=== PATIENT | female | born 1955 | race Hispanic/Latino ===

== ENCOUNTER 2020-09-02 16:39 | Emergency (ER) | payer MEDICARE ==
[2020-09-02 17:17] LABS: #Eosinphils 0.2 10x3/uL (0.0-0.5); #Monocytes 0.5 10x3/uL (0.0-1.1); #Neutrophils 3.5 10x3/uL (1.5-8.4); %Basophils 0.4 % (0.0-2.0); %Eosinophils 3.6 % (0.0-6.0); %Lymphocytes 20.5 % (18.0-47.0); %Monocytes 8.8 % (0.0-10.0); %Neutrophils 66.5 % (40.0-75.0); Hemoglobin 9.2 g/dL (12.0-15.5); Mean Corpuscular HGB CONC 31.8 g/dL (32.0-36.0); Mean Corpuscular Hemoglobin 31.5 pg (27.0-33.0); Mean Platelet Volume 9.8 fl (7.4-10.4); Platelet Count 192 10x3/uL (150-450); RBC Distribution Width 15.6 % (11.5-14.5); Red Blood Cell (RBC) Count 2.92 10x6/uL (3.90-5.03); White Blood Cell (WBC) Count 5.3 10x3/uL (3.5-10.5)
[2020-09-02 17:29] LABS: ALT (SGPT) 9 U/L (8-55); AST (SGOT) 17 U/L (5-34); Albumin 3.7 g/dL (3.4-4.8); Alkaline Phosphatase 111 U/L (40-110); Anion Gap 16 mmol/L (10-20); BUN (Urea Nitrogen) 9 mg/dL (9.8-20.1); Bilirubin, Total 0.5 mg/dL (0.2-1.2); Calc. Creatinine Clearance 0 mL/min (70-130); Calcium 8.4 mg/dL (7.8-10.44); Carbon Dioxide 32 mmol/L (23-31); Chloride 95 mmol/L (98-107); Globulin 3.4 g/dL (2.4-3.5); Glucose 210 mg/dL (80-115); Potassium 3.7 mmol/L (3.5-5.1); Protein, Total 7.1 g/dL (5.8-8.1); Sodium 139 mmol/L (136-145)
[2020-09-02] MEDS ORDERED: Mag-Al Plus 1200 MG/1200 MG/120 MG/30 ML UDCUP ONE (17:44)
[2020-09-02] MEDS ORDERED: Lidocaine Viscous Sol 2% 15 ml UD Cup ONE (17:44)
[2020-09-02] MEDS ORDERED: Ondansetron ODT 4 MG TAB ONE (17:45)
[2020-09-02] MEDS ORDERED: Acetaminophen 500 MG TAB ONE (17:45)
[2020-09-02 17:52] LABS: CKMB 1.4 ng/mL (0-6.6)
[2020-09-02] MEDS ORDERED: traMADol HCl 50 MG TAB ONE (18:06)
[2020-09-02] MEDS ORDERED: hydrOXYzine 25 MG TAB ONE (19:35)
[2020-09-02] MEDS ORDERED: Dicyclomine 20 MG TAB ONE (19:36)
== END 2020-09-02 21:10 | disposition home or self-care (01) ==
LOC: CSHERS 16:39
DX: R07.89 Other chest pain (principal); K21.9 Gastro-esophageal reflux disease without esophagitis; T82.838A Hemorrhage due to vascular prosthetic devices, implants and grafts, initial encounter; S90.931D Unspecified superficial injury of right great toe, subsequent encounter; E03.9 Hypothyroidism, unspecified; E11.22 Type 2 diabetes mellitus with diabetic chronic kidney disease; I12.0 Hypertensive chronic kidney disease with stage 5 chronic kidney disease or end stage renal disease; N18.6 End stage renal disease
CPT/HCPCS: 12001; 71045; 80053; 82553; 84484; 85025; 93005; Q0162

== ENCOUNTER 2021-02-07 16:15 | Inpatient (IN) | payer MEDICARE ==
[2021-02-07] MEDS ORDERED: Piperacillin/Tazobactam 2.25 GM in Sodium Chloride 0.9% 100 ML IVPB SCH (19:45)
[2021-02-07 20:49] VITALS: BMI 39.9
[2021-02-07 21:41] LABS: ALT (SGPT) 10 U/L (8-55); AST (SGOT) 20 U/L (5-34); Albumin 2.3 g/dL (3.4-4.8); Alkaline Phosphatase 143 U/L (40-110); Anion Gap 17 mmol/L (10-20); BUN (Urea Nitrogen) 30 mg/dL (9.8-20.1); Bilirubin, Total 0.4 mg/dL (0.2-1.2); Calc. Creatinine Clearance 25 mL/min (70-130); Calcium 8.6 mg/dL (7.8-10.44); Carbon Dioxide 29 mmol/L (23-31); Chloride 95 mmol/L (98-107); Globulin 4.2 g/dL (2.4-3.5); Glucose 99 mg/dL (80-115); Potassium 4.1 mmol/L (3.5-5.1); Protein, Total 6.5 g/dL (5.8-8.1); Sodium 137 mmol/L (136-145)
[2021-02-07] MEDS ORDERED: Vancomycin HCl 750 MG in Sodium Chloride 0.9% 250 ML 250 ML IVPB SCH (22:30)
[2021-02-07] MEDS ORDERED: HOLD VANCOMYCIN FOR LEVEL >20 FS SCH (22:30)
[2021-02-07] MEDS ORDERED: Vancomycin 1 GM in Premix Bag 1 BAG IVPB SCH (22:30)
[2021-02-07] MEDS ORDERED: Vancomycin HCl 1.25 GM in Sodium Chloride 0.9% 250 ML 250 ML IVPB SCH (22:30)
[2021-02-07] MEDS ORDERED: Vancomycin HCl 1.5 GM in Sodium Chloride 0.9% 250 ML 300 ML IVPB SCH (22:30)
[2021-02-07] MEDS ORDERED: Vancomycin Sliding Scale 1 EACH FS ONE (22:30)
[2021-02-07] MEDS: Heparin 5,000 UNITS/ML VIAL SC SCH (22:54)
[2021-02-07] MEDS: Amiodarone 200 MG TAB PO SCH (22:54)
[2021-02-07] MEDS: Gabapentin 300 MG CAP PO SCH (22:54)
[2021-02-07] MEDS ORDERED: Piperacillin/Tazobactam 3.375 GM in Sodium Chloride 0.9% 100 ML IVPB SCH (23:30)
[2021-02-08] MEDS: Piperacillin/Tazobactam 3.375 GM in Sodium Chloride 0.9% 100 ML IVPB SCH ×2 (04:01→17:12)
[2021-02-08 05:36] LABS: Vancomycin, Random 1.5 ug/mL (See Comment)
[2021-02-08 07:51] LABS: Anisocytosis SLIGHT = 6-15 cells (100X) (0-5/hpf); Eosinophils 4 % (0-10); Hemoglobin 7.2 g/dL (12.0-15.5); Hypochromia SLIGHT = 6-15 cells (100X) (0-5/hpf); Lymphocytes 21 % (21-51); MDiff Complete? YES; Mean Corpuscular HGB CONC 29.4 g/dL (32.0-36.0); Mean Corpuscular Hemoglobin 27.2 pg (27.0-33.0); Mean Corpuscular Volume 92.5 fl (81.6-98.3); Monocytes 9 % (0-10); Neutrophil 64 % (42-75); Platelet Count 324 10x3/uL (150-450); Platelet Morphology Comment Appears Adequate; RBC Distribution Width 17.6 % (11.5-14.5); Reactive Lymphocytes 2 % (0-10); Red Blood Cell (RBC) Count 2.65 10x6/uL (3.90-5.03); White Blood Cell (WBC) Count 7.6 10x3/uL (3.5-10.5)
[2021-02-08] MEDS ORDERED: VANCOMYCIN 2 GRAM/400 ML BAG 2 GM in Premix Bag 1 BAG IVPB SCH (08:00)
[2021-02-08] MEDS: HumuLIN 70/30 (300 UNITS/3 ML VIAL) SC SCH ×2 (08:49→17:13)
[2021-02-08] MEDS: Ferrous Sulfate 325 MG TAB PO SCH (09:14)
[2021-02-08] MEDS: Atorvastatin Calcium 40 MG TAB PO SCH (09:15)
[2021-02-08] MEDS: Gabapentin 300 MG CAP PO SCH ×2 (09:15→21:56)
[2021-02-08] MEDS: Heparin 5,000 UNITS/ML VIAL SC SCH ×3 (09:16→21:58)
[2021-02-08] MEDS: Amiodarone 200 MG TAB PO SCH ×2 (09:16→21:58)
[2021-02-08] MEDS ORDERED: Dextrose 50% Abboject 50 ML SYRINGE SLOW IVP PRN (10:28)
[2021-02-08] MEDS ORDERED: Dextrose 5% in Water 1,000 ML IV PRN (10:28)
[2021-02-08] MEDS ORDERED: HumaLOG 300 UNITS/3 ML VIAL SC PRN ×2 (10:28)
[2021-02-08] MEDS ORDERED: Morphine 2 MG/ML VIAL SLOW IVP SCH (16:45)
[2021-02-09 03:59] LABS: Anion Gap 21 mmol/L (10-20); BUN (Urea Nitrogen) 43 mg/dL (9.8-20.1); Calc. Creatinine Clearance 19 mL/min (70-130); Calcium 8.3 mg/dL (7.8-10.44); Carbon Dioxide 25 mmol/L (23-31); Chloride 96 mmol/L (98-107); Glucose 167 mg/dL (80-115); Potassium 4.5 mmol/L (3.5-5.1); Sodium 137 mmol/L (136-145)
[2021-02-09 04:32] LABS: #Basophils 0.1 10x3/uL (0.0-0.2); #Eosinphils 0.4 10x3/uL (0.0-0.5); #Monocytes 0.6 10x3/uL (0.0-1.1); #Neutrophils 4.9 10x3/uL (1.5-8.4); %Basophils 0.6 % (0.0-2.0); %Eosinophils 5.1 % (0.0-6.0); %Lymphocytes 22.3 % (18.0-47.0); %Monocytes 8.3 % (0.0-10.0); %Neutrophils 63.2 % (40.0-75.0); Hemoglobin 6.9 g/dL (12.0-15.5); Mean Corpuscular HGB CONC 29.4 g/dL (32.0-36.0); Mean Corpuscular Hemoglobin 26.2 pg (27.0-33.0); Mean Corpuscular Volume 89.4 fl (81.6-98.3); Mean Platelet Volume 10.2 fl (7.4-10.4); Platelet Count 354 10x3/uL (150-450); RBC Distribution Width 17.6 % (11.5-14.5); Red Blood Cell (RBC) Count 2.63 10x6/uL (3.90-5.03); White Blood Cell (WBC) Count 7.7 10x3/uL (3.5-10.5)
[2021-02-09] MEDS: Piperacillin/Tazobactam 3.375 GM in Sodium Chloride 0.9% 100 ML IVPB SCH ×2 (05:35→17:18)
[2021-02-09 06:24] LABS: Hypochromia SLIGHT = 6-15 cells (100X) (0-5/hpf); Microcytosis SLIGHT = 6-15 cells (100X) (0-5/hpf); Platelet Morphology Comment Appears Adequate
[2021-02-09] MEDS ORDERED: Heparin 10,000 UNITS/ 10 ML VIAL SLOW IVP PRN (07:16)
[2021-02-09] MEDS: Amiodarone 200 MG TAB PO SCH ×2 (08:23→21:32)
[2021-02-09] MEDS: Atorvastatin Calcium 40 MG TAB PO SCH (08:24)
[2021-02-09] MEDS: HumuLIN 70/30 (300 UNITS/3 ML VIAL) SC SCH ×2 (08:24→17:37)
[2021-02-09] MEDS: Ferrous Sulfate 325 MG TAB PO SCH (08:25)
[2021-02-09] MEDS: Gabapentin 300 MG CAP PO SCH ×3 (08:26→22:40)
[2021-02-09] MEDS: Heparin 5,000 UNITS/ML VIAL SC SCH ×3 (08:30→21:31)
[2021-02-09 09:04] LABS: Iron 33 ug/dL (50-170); Iron Binding Capacity, Total 91 mcg/dL (265-497)
[2021-02-09] MEDS: Acetaminophen 325 MG TAB PO PRN (10:15)
[2021-02-09] MEDS ORDERED: HYDROcodone/Acetaminophen 5/325 mg Tablet PO PRN (11:13)
[2021-02-09] MEDS ORDERED: Morphine 4 MG/ML VIAL SLOW IVP PRN (11:29)
[2021-02-09] MEDS ORDERED: Lidocaine 2% Jelly 5 ML TUBE TOP PRN ×2 (11:30→12:43)
[2021-02-09] MEDS: EPOETIN ALFA-EPBX (ESRD) 3,000 UNIT/ML VIAL SC SCH (14:51)
[2021-02-09] MEDS: EPOETIN ALFA-EPBX (ESRD) 2,000 UNIT/ML VIAL SC SCH (14:51)
[2021-02-09] MEDS ORDERED: Morphine 2 MG/ML VIAL SLOW IVP PRN (20:26)
[2021-02-09] MEDS ORDERED: hydrALAZINE 20 MG/ML VIAL SLOW IVP PRN (21:34)
[2021-02-09] MEDS: HYDROcodone/Acetaminophen 7.5/325 mg Tablet PO PRN (22:37)
[2021-02-09 23:15] LABS: Hemoglobin 8.8 g/dL (12.0-15.5); Mean Corpuscular HGB CONC 30.3 g/dL (32.0-36.0); Mean Corpuscular Hemoglobin 27.3 pg (27.0-33.0); Mean Corpuscular Volume 90.1 fl (81.6-98.3); Mean Platelet Volume 9.9 fl (7.4-10.4); Platelet Count 367 10x3/uL (150-450); RBC Distribution Width 17.1 % (11.5-14.5); Red Blood Cell (RBC) Count 3.22 10x6/uL (3.90-5.03); White Blood Cell (WBC) Count 7.7 10x3/uL (3.5-10.5)
[2021-02-09 23:30] LABS: Magnesium 2.1 mg/dL (1.6-2.6)
[2021-02-10] MEDS: Piperacillin/Tazobactam 3.375 GM in Sodium Chloride 0.9% 100 ML IVPB SCH ×2 (05:09→17:03)
[2021-02-10] MEDS: HYDROcodone/Acetaminophen 7.5/325 mg Tablet PO PRN (05:12)
[2021-02-10 08:41] LABS: #Eosinphils 0.3 10x3/uL (0.0-0.5); #Monocytes 0.7 10x3/uL (0.0-1.1); #Neutrophils 4.3 10x3/uL (1.5-8.4); %Basophils 0.6 % (0.0-2.0); %Eosinophils 4.6 % (0.0-6.0); %Monocytes 10.3 % (0.0-10.0); %Neutrophils 62.9 % (40.0-75.0); Hemoglobin 7.6 g/dL (12.0-15.5); Mean Corpuscular HGB CONC 29.5 g/dL (32.0-36.0); Mean Corpuscular Hemoglobin 26.4 pg (27.0-33.0); Mean Corpuscular Volume 89.6 fl (81.6-98.3); Platelet Count 363 10x3/uL (150-450); RBC Distribution Width 17.2 % (11.5-14.5); Red Blood Cell (RBC) Count 2.88 10x6/uL (3.90-5.03); White Blood Cell (WBC) Count 6.8 10x3/uL (3.5-10.5)
[2021-02-10 08:47] LABS: Vancomycin, Random 19.3 ug/mL (See Comment)
[2021-02-10 08:48] LABS: Anion Gap 15 mmol/L (10-20); BUN (Urea Nitrogen) 23 mg/dL (9.8-20.1); Calc. Creatinine Clearance 29 mL/min (70-130); Calcium 8.3 mg/dL (7.8-10.44); Carbon Dioxide 27 mmol/L (23-31); Chloride 100 mmol/L (98-107); Glucose 109 mg/dL (80-115); Sodium 138 mmol/L (136-145)
[2021-02-10] MEDS: Aspirin 81 mg Enteric Coated Tablet PO SCH (10:47)
[2021-02-10] MEDS: Atorvastatin Calcium 40 MG TAB PO SCH (10:47)
[2021-02-10] MEDS: Heparin 5,000 UNITS/ML VIAL SC SCH (10:47)
[2021-02-10] MEDS: Ferrous Sulfate 325 MG TAB PO SCH (10:47)
[2021-02-10] MEDS: Pantoprazole 40 MG GRANULES PACKET PO SCH (10:47)
[2021-02-10] MEDS: Clopidogrel Bisulfate 75 MG TAB PO SCH (10:47)
[2021-02-10] MEDS: Levothyroxine Sodium 125 MCG TAB PO SCH (10:47)
[2021-02-10] MEDS: HumuLIN 70/30 (300 UNITS/3 ML VIAL) SC SCH ×2 (10:47→16:43)
[2021-02-10] MEDS: Amiodarone 200 MG TAB PO SCH ×2 (10:47→21:02)
[2021-02-10] MEDS ORDERED: Ketorolac Tromethamine 30 MG/ML VIAL IVP SCH (12:00)
[2021-02-10 12:30] LABS: Hemoglobin 8.9 g/dL (12.0-15.5)
[2021-02-10] MEDS: Apixaban 2.5 MG TAB PO SCH (21:02)
[2021-02-10] MEDS: Gabapentin 300 MG CAP PO SCH (21:03)
[2021-02-11] MEDS: Acetaminophen 325 MG TAB PO PRN (00:30)
[2021-02-11] MEDS: Ketorolac Tromethamine 30 MG/ML VIAL IVP PRN ×4 (02:02→20:47)
[2021-02-11] MEDS: Piperacillin/Tazobactam 3.375 GM in Sodium Chloride 0.9% 100 ML IVPB SCH ×2 (04:22→15:02)
[2021-02-11 05:20] LABS: Anion Gap 20 mmol/L (10-20); BUN (Urea Nitrogen) 30 mg/dL (9.8-20.1); Calc. Creatinine Clearance 24 mL/min (70-130); Calcium 8.4 mg/dL (7.8-10.44); Carbon Dioxide 24 mmol/L (23-31); Chloride 99 mmol/L (98-107); Glucose 129 mg/dL (80-115); Potassium 4.2 mmol/L (3.5-5.1); Sodium 139 mmol/L (136-145)
[2021-02-11 05:21] LABS: #Basophils 0.1 10x3/uL (0.0-0.2); #Eosinphils 0.4 10x3/uL (0.0-0.5); #Monocytes 0.5 10x3/uL (0.0-1.1); #Neutrophils 3.4 10x3/uL (1.5-8.4); %Basophils 1.2 % (0.0-2.0); %Eosinophils 7.2 % (0.0-6.0); %Lymphocytes 24.3 % (18.0-47.0); %Monocytes 8.8 % (0.0-10.0); %Neutrophils 57.8 % (40.0-75.0); Hemoglobin 7.7 g/dL (12.0-15.5); Mean Corpuscular HGB CONC 29.7 g/dL (32.0-36.0); Mean Corpuscular Hemoglobin 27.1 pg (27.0-33.0); Mean Corpuscular Volume 91.2 fl (81.6-98.3); Mean Platelet Volume 10.1 fl (7.4-10.4); Platelet Count 375 10x3/uL (150-450); RBC Distribution Width 17.2 % (11.5-14.5); Red Blood Cell (RBC) Count 2.84 10x6/uL (3.90-5.03); White Blood Cell (WBC) Count 5.8 10x3/uL (3.5-10.5)
[2021-02-11] MEDS: Levothyroxine Sodium 125 MCG TAB PO SCH (05:27)
[2021-02-11] MEDS: Pantoprazole 40 MG GRANULES PACKET PO SCH (05:28)
[2021-02-11 06:30] LABS: Platelet Morphology Comment Appears Adequate
[2021-02-11 06:31] LABS: Hypochromia SLIGHT = 6-15 cells (100X) (0-5/hpf)
[2021-02-11] MEDS ORDERED: Vancomycin HCl 750 MG in Sodium Chloride 0.9% 250 ML 250 ML IVPB SCH (08:00)
[2021-02-11] MEDS: Atorvastatin Calcium 40 MG TAB PO SCH (14:40)
[2021-02-11] MEDS: HYDROcodone/Acetaminophen 7.5/325 mg Tablet PO PRN ×2 (14:40→20:46)
[2021-02-11] MEDS: Clopidogrel Bisulfate 75 MG TAB PO SCH (14:40)
[2021-02-11] MEDS: Apixaban 2.5 MG TAB PO SCH ×2 (14:42→20:45)
[2021-02-11] MEDS: Amiodarone 200 MG TAB PO SCH ×2 (14:42→20:46)
[2021-02-11] MEDS: HumuLIN 70/30 (300 UNITS/3 ML VIAL) SC SCH ×2 (14:42→17:25)
[2021-02-11] MEDS: Aspirin 81 mg Enteric Coated Tablet PO SCH (14:42)
[2021-02-11] MEDS: Ferrous Sulfate 325 MG TAB PO SCH (14:42)
[2021-02-11] MEDS: Gabapentin 300 MG CAP PO SCH ×2 (14:43→20:45)
[2021-02-11] MEDS: EPOETIN ALFA-EPBX (ESRD) 3,000 UNIT/ML VIAL SC SCH (14:44)
[2021-02-11] MEDS: EPOETIN ALFA-EPBX (ESRD) 2,000 UNIT/ML VIAL SC SCH (14:44)
[2021-02-11] MEDS ORDERED: Morphine 4 MG/ML VIAL SLOW IVP SCH (17:30)
[2021-02-11] MEDS: Morphine 2 MG/ML VIAL SLOW IVP PRN (23:23)
[2021-02-12] MEDS: HYDROcodone/Acetaminophen 7.5/325 mg Tablet PO PRN ×4 (01:09→19:44)
[2021-02-12] MEDS: Ketorolac Tromethamine 30 MG/ML VIAL IVP PRN ×4 (01:10→19:44)
[2021-02-12] MEDS: Piperacillin/Tazobactam 3.375 GM in Sodium Chloride 0.9% 100 ML IVPB SCH (04:21)
[2021-02-12] MEDS: Pantoprazole 40 MG GRANULES PACKET PO SCH (05:23)
[2021-02-12] MEDS: Levothyroxine Sodium 125 MCG TAB PO SCH (05:23)
[2021-02-12] MEDS: Morphine 2 MG/ML VIAL SLOW IVP PRN ×3 (06:34→13:31)
[2021-02-12 07:01] LABS: Anion Gap 19 mmol/L (10-20); BUN (Urea Nitrogen) 18 mg/dL (9.8-20.1); Calc. Creatinine Clearance 33 mL/min (70-130); Carbon Dioxide 27 mmol/L (23-31); Chloride 95 mmol/L (98-107); Glucose 103 mg/dL (80-115); Magnesium 1.9 mg/dL (1.6-2.6); Potassium 4.2 mmol/L (3.5-5.1); Sodium 137 mmol/L (136-145)
[2021-02-12 07:12] LABS: #Basophils 0.1 10x3/uL (0.0-0.2); #Eosinphils 0.5 10x3/uL (0.0-0.5); #Monocytes 0.6 10x3/uL (0.0-1.1); #Neutrophils 3.9 10x3/uL (1.5-8.4); %Basophils 0.8 % (0.0-2.0); %Eosinophils 7.4 % (0.0-6.0); %Lymphocytes 23.1 % (18.0-47.0); %Neutrophils 59.1 % (40.0-75.0); Hemoglobin 8.3 g/dL (12.0-15.5); Mean Corpuscular HGB CONC 29.3 g/dL (32.0-36.0); Mean Corpuscular Hemoglobin 26.6 pg (27.0-33.0); Mean Corpuscular Volume 90.7 fl (81.6-98.3); Mean Platelet Volume 9.9 fl (7.4-10.4); Platelet Count 404 10x3/uL (150-450); RBC Distribution Width 17.5 % (11.5-14.5); Red Blood Cell (RBC) Count 3.12 10x6/uL (3.90-5.03); White Blood Cell (WBC) Count 6.6 10x3/uL (3.5-10.5)
[2021-02-12] MEDS: Aspirin 81 mg Enteric Coated Tablet PO SCH (08:22)
[2021-02-12] MEDS: Clopidogrel Bisulfate 75 MG TAB PO SCH (08:22)
[2021-02-12] MEDS: Atorvastatin Calcium 40 MG TAB PO SCH (08:22)
[2021-02-12] MEDS: Apixaban 2.5 MG TAB PO SCH ×2 (08:22→21:05)
[2021-02-12] MEDS: Amiodarone 200 MG TAB PO SCH ×2 (08:23→21:05)
[2021-02-12] MEDS: Gabapentin 300 MG CAP PO SCH ×2 (08:23→21:04)
[2021-02-12] MEDS: Ferrous Sulfate 325 MG TAB PO SCH (08:23)
[2021-02-12] MEDS: HumuLIN 70/30 (300 UNITS/3 ML VIAL) SC SCH ×2 (08:24→18:47)
[2021-02-12] MEDS ORDERED: MEROPENEM 1 GM/50 ML 1 GM in Premix Bag 1 BAG IVPB SCH (10:00)
[2021-02-12] MEDS ORDERED: Meropenem 1 GM in Sodium Chloride 0.9% 100 ML IVPB SCH (14:00)
[2021-02-12] MEDS ORDERED: Morphine ER 15 MG TAB PO SCH (16:00)
[2021-02-12] MEDS: Meropenem 500 MG in Sodium Chloride 0.9% 100 ML IVPB SCH (18:55)
[2021-02-13] MEDS: Morphine 2 MG/ML VIAL SLOW IVP PRN ×3 (00:18→23:37)
[2021-02-13] MEDS: HYDROcodone/Acetaminophen 7.5/325 mg Tablet PO PRN ×2 (00:54→10:03)
[2021-02-13] MEDS: Ketorolac Tromethamine 30 MG/ML VIAL IVP PRN ×2 (00:55→10:01)
[2021-02-13] MEDS: Morphine ER 15 MG TAB PO SCH ×2 (04:36→23:35)
[2021-02-13] MEDS ORDERED: Sodium Chloride 0.9% 100 ML ONE (05:05)
[2021-02-13] MEDS: Meropenem 500 MG in Sodium Chloride 0.9% 100 ML IVPB SCH (05:13)
[2021-02-13] MEDS: Pantoprazole 40 MG GRANULES PACKET PO SCH (05:14)
[2021-02-13] MEDS: Levothyroxine Sodium 125 MCG TAB PO SCH (05:14)
[2021-02-13 07:57] LABS: #Eosinphils 0.4 10x3/uL (0.0-0.5); #Monocytes 0.6 10x3/uL (0.0-1.1); #Neutrophils 8.6 10x3/uL (1.5-8.4); %Basophils 0.3 % (0.0-2.0); %Eosinophils 3.8 % (0.0-6.0); %Lymphocytes 12.4 % (18.0-47.0); %Monocytes 5.2 % (0.0-10.0); %Neutrophils 77.7 % (40.0-75.0); Hemoglobin 9.1 g/dL (12.0-15.5); Mean Corpuscular HGB CONC 29.9 g/dL (32.0-36.0); Mean Corpuscular Hemoglobin 27.2 pg (27.0-33.0); Mean Corpuscular Volume 90.7 fl (81.6-98.3); Mean Platelet Volume 9.9 fl (7.4-10.4); Platelet Count 366 10x3/uL (150-450); RBC Distribution Width 17.7 % (11.5-14.5); Red Blood Cell (RBC) Count 3.35 10x6/uL (3.90-5.03); White Blood Cell (WBC) Count 11.1 10x3/uL (3.5-10.5)
[2021-02-13 08:00] LABS: Vancomycin, Random 15.6 ug/mL (See Comment)
[2021-02-13 08:01] LABS: Anion Gap 17 mmol/L (10-20); BUN (Urea Nitrogen) 31 mg/dL (9.8-20.1); Calc. Creatinine Clearance 26 mL/min (70-130); Calcium 7.9 mg/dL (7.8-10.44); Carbon Dioxide 25 mmol/L (23-31); Chloride 96 mmol/L (98-107); Glucose 78 mg/dL (80-115); Potassium 3.9 mmol/L (3.5-5.1); Sodium 134 mmol/L (136-145)
[2021-02-13] MEDS: HumuLIN 70/30 (300 UNITS/3 ML VIAL) SC SCH ×2 (10:00→18:50)
[2021-02-13] MEDS: Gabapentin 300 MG CAP PO SCH ×2 (10:02→23:36)
[2021-02-13] MEDS: Clopidogrel Bisulfate 75 MG TAB PO SCH (10:03)
[2021-02-13] MEDS: Aspirin 81 mg Enteric Coated Tablet PO SCH (10:03)
[2021-02-13] MEDS: Atorvastatin Calcium 40 MG TAB PO SCH (10:04)
[2021-02-13] MEDS: Apixaban 2.5 MG TAB PO SCH ×2 (10:04→23:36)
[2021-02-13] MEDS: Ferrous Sulfate 325 MG TAB PO SCH (10:05)
[2021-02-13] MEDS: Amiodarone 200 MG TAB PO SCH ×2 (10:05→23:36)
[2021-02-13] MEDS ORDERED: Vancomycin HCl 750 MG in Sodium Chloride 0.9% 250 ML 250 ML IVPB SCH ×2 (12:00→20:15)
[2021-02-14] MEDS: Meropenem 500 MG in Sodium Chloride 0.9% 100 ML IVPB SCH ×3 (00:27→12:34)
[2021-02-14] MEDS ORDERED: Vancomycin HCl 750 MG in Sodium Chloride 0.9% 250 ML 250 ML IVPB SCH (01:00)
[2021-02-14] MEDS: HYDROcodone/Acetaminophen 7.5/325 mg Tablet PO PRN ×3 (02:15→19:24)
[2021-02-14] MEDS: Ketorolac Tromethamine 30 MG/ML VIAL IVP PRN (02:17)
[2021-02-14] MEDS: Morphine ER 15 MG TAB PO SCH ×2 (04:46→16:33)
[2021-02-14] MEDS: Levothyroxine Sodium 125 MCG TAB PO SCH (05:45)
[2021-02-14] MEDS: Pantoprazole 40 MG GRANULES PACKET PO SCH (05:45)
[2021-02-14] MEDS: Gabapentin 300 MG CAP PO SCH ×2 (08:15→21:06)
[2021-02-14] MEDS: Atorvastatin Calcium 40 MG TAB PO SCH ×2 (08:15→08:24)
[2021-02-14] MEDS: Apixaban 2.5 MG TAB PO SCH ×2 (08:16→21:06)
[2021-02-14] MEDS: Aspirin 81 mg Enteric Coated Tablet PO SCH (08:16)
[2021-02-14] MEDS: Clopidogrel Bisulfate 75 MG TAB PO SCH (08:16)
[2021-02-14] MEDS: Amiodarone 200 MG TAB PO SCH ×2 (08:16→21:06)
[2021-02-14] MEDS: HumuLIN 70/30 (300 UNITS/3 ML VIAL) SC SCH ×2 (08:17→16:34)
[2021-02-14] MEDS: Ferrous Sulfate 325 MG TAB PO SCH (08:17)
[2021-02-14] MEDS: EPOETIN ALFA-EPBX (ESRD) 3,000 UNIT/ML VIAL SC SCH (12:35)
[2021-02-14] MEDS: EPOETIN ALFA-EPBX (ESRD) 2,000 UNIT/ML VIAL SC SCH (12:35)
[2021-02-14 20:45] LABS: #Eosinphils 0.4 10x3/uL (0.0-0.5); #Monocytes 0.6 10x3/uL (0.0-1.1); #Neutrophils 7.4 10x3/uL (1.5-8.4); %Basophils 0.4 % (0.0-2.0); %Eosinophils 3.8 % (0.0-6.0); %Lymphocytes 15.9 % (18.0-47.0); %Monocytes 5.5 % (0.0-10.0); %Neutrophils 73.9 % (40.0-75.0); Hemoglobin 7.8 g/dL (12.0-15.5); Mean Corpuscular HGB CONC 28.9 g/dL (32.0-36.0); Mean Corpuscular Hemoglobin 27.1 pg (27.0-33.0); Mean Corpuscular Volume 93.8 fl (81.6-98.3); Mean Platelet Volume 9.7 fl (7.4-10.4); Platelet Count 370 10x3/uL (150-450); Red Blood Cell (RBC) Count 2.88 10x6/uL (3.90-5.03)
[2021-02-14 20:56] LABS: Anion Gap 16 mmol/L (10-20); BUN (Urea Nitrogen) 20 mg/dL (9.8-20.1); Calc. Creatinine Clearance 31 mL/min (70-130); Calcium 8.2 mg/dL (7.8-10.44); Carbon Dioxide 25 mmol/L (23-31); Chloride 100 mmol/L (98-107); Glucose 120 mg/dL (80-115); Potassium 3.9 mmol/L (3.5-5.1); Sodium 137 mmol/L (136-145)
[2021-02-14 21:15] LABS: Hypochromia SLIGHT = 6-15 cells (100X) (0-5/hpf)
[2021-02-14 21:16] LABS: Basophilic Stippling SLIGHT = 1-2 cells (100X) (None Seen); Large Platelets SLIGHT
[2021-02-15] MEDS: Meropenem 500 MG in Sodium Chloride 0.9% 100 ML IVPB SCH ×3 (00:35→23:52)
[2021-02-15] MEDS: Morphine ER 15 MG TAB PO SCH ×2 (04:37→16:20)
[2021-02-15 05:15] LABS: Vancomycin, Trough 14.1 ug/mL
[2021-02-15] MEDS: Levothyroxine Sodium 125 MCG TAB PO SCH (06:21)
[2021-02-15] MEDS: Pantoprazole 40 MG GRANULES PACKET PO SCH (06:21)
[2021-02-15] MEDS: Ferrous Sulfate 325 MG TAB PO SCH (08:01)
[2021-02-15] MEDS: Amiodarone 200 MG TAB PO SCH ×2 (08:01→21:42)
[2021-02-15] MEDS: Aspirin 81 mg Enteric Coated Tablet PO SCH (08:01)
[2021-02-15] MEDS: Gabapentin 300 MG CAP PO SCH ×2 (08:01→21:41)
[2021-02-15] MEDS: Clopidogrel Bisulfate 75 MG TAB PO SCH (08:01)
[2021-02-15] MEDS: Apixaban 2.5 MG TAB PO SCH ×2 (08:02→21:42)
[2021-02-15] MEDS: Atorvastatin Calcium 40 MG TAB PO SCH (08:02)
[2021-02-15] MEDS: HYDROcodone/Acetaminophen 7.5/325 mg Tablet PO PRN ×2 (08:02→23:51)
[2021-02-15] MEDS: HumuLIN 70/30 (300 UNITS/3 ML VIAL) SC SCH ×2 (09:57→19:59)
[2021-02-15] MEDS ORDERED: Vancomycin HCl 1 GM in Sodium Chloride 0.9% 250 ML 250 ML IVPB SCH (11:00)
[2021-02-15 12:16] LABS: Anion Gap 11 mmol/L (10-20); BUN (Urea Nitrogen) 7 mg/dL (9.8-20.1); Calc. Creatinine Clearance 76 mL/min (70-130); Calcium 8.1 mg/dL (7.8-10.44); Carbon Dioxide 29 mmol/L (23-31); Chloride 100 mmol/L (98-107); Glucose 106 mg/dL (80-115); Potassium 3.6 mmol/L (3.5-5.1); Sodium 136 mmol/L (136-145)
[2021-02-15 12:23] LABS: Band 2 % (5-11); Basophilic Stippling SLIGHT = 1-2 cells (100X) (None Seen); Eosinophils 2 % (0-10); Hemoglobin 7.7 g/dL (12.0-15.5); Hypochromia SLIGHT = 6-15 cells (100X) (0-5/hpf); Lymphocytes 14 % (21-51); MDiff Complete? YES; Macrocytosis SLIGHT = 6-15 cells (100X) (0-5/hpf); Mean Corpuscular HGB CONC 29.4 g/dL (32.0-36.0); Mean Corpuscular Hemoglobin 27.5 pg (27.0-33.0); Mean Corpuscular Volume 93.6 fl (81.6-98.3); Mean Platelet Volume 9.2 fl (7.4-10.4); Microcytosis SLIGHT = 6-15 cells (100X) (0-5/hpf); Monocytes 5 % (0-10); Neutrophil 73 % (42-75); Platelet Count 387 10x3/uL (150-450); Platelet Morphology Comment Appears Adequate; Polychromasia SLIGHT = 2-3 cells (100X) (0-2/hpf); Reactive Lymphocytes 3 % (0-10); Schistocytes SLIGHT = 2-5 cells (100X) (0-1/hpf); Target Cells SLIGHT = 2-5 cells (100X) (0-1/hpf); White Blood Cell (WBC) Count 8.7 10x3/uL (3.5-10.5)
[2021-02-15] MEDS: Morphine 4 MG/ML VIAL SLOW IVP PRN (14:27)
[2021-02-16] MEDS: Pantoprazole 40 MG GRANULES PACKET PO SCH (05:07)
[2021-02-16] MEDS: Morphine ER 15 MG TAB PO SCH ×2 (05:08→17:32)
[2021-02-16] MEDS: Levothyroxine Sodium 125 MCG TAB PO SCH (05:08)
[2021-02-16] MEDS: Gabapentin 300 MG CAP PO SCH ×2 (08:56→21:05)
[2021-02-16] MEDS: Atorvastatin Calcium 40 MG TAB PO SCH (08:57)
[2021-02-16] MEDS: Clopidogrel Bisulfate 75 MG TAB PO SCH (08:57)
[2021-02-16] MEDS: Amiodarone 200 MG TAB PO SCH ×2 (08:57→21:05)
[2021-02-16] MEDS: Ferrous Sulfate 325 MG TAB PO SCH (08:57)
[2021-02-16] MEDS: Aspirin 81 mg Enteric Coated Tablet PO SCH (08:57)
[2021-02-16] MEDS: HumuLIN 70/30 (300 UNITS/3 ML VIAL) SC SCH ×2 (08:58→17:33)
[2021-02-16 09:39] LABS: Albumin 2.2 g/dL (3.4-4.8); Anion Gap 12 mmol/L (10-20); BUN (Urea Nitrogen) 16 mg/dL (9.8-20.1); BUN/Creatinine Ratio 6.43; Calc. Creatinine Clearance 37 mL/min (70-130); Calcium 8.4 mg/dL (7.8-10.44); Carbon Dioxide 26 mmol/L (23-31); Chloride 101 mmol/L (98-107); Glucose 113 mg/dL (80-115); Phosphorus 2.5 mg/dL (2.3-4.7); Potassium 4.2 mmol/L (3.5-5.1); Sodium 135 mmol/L (136-145)
[2021-02-16 13:17] LABS: #Eosinphils 0.2 10x3/uL (0.0-0.5); #Monocytes 0.6 10x3/uL (0.0-1.1); #Neutrophils 5.8 10x3/uL (1.5-8.4); %Basophils 0.4 % (0.0-2.0); %Eosinophils 2.7 % (0.0-6.0); %Lymphocytes 18.7 % (18.0-47.0); %Monocytes 7.2 % (0.0-10.0); %Neutrophils 70.4 % (40.0-75.0); Hemoglobin 7.6 g/dL (12.0-15.5); Mean Corpuscular HGB CONC 28.5 g/dL (32.0-36.0); Mean Corpuscular Hemoglobin 27.1 pg (27.0-33.0); Mean Corpuscular Volume 95.4 fl (81.6-98.3); Mean Platelet Volume 9.1 fl (7.4-10.4); Platelet Count 373 10x3/uL (150-450); RBC Distribution Width 18.1 % (11.5-14.5); White Blood Cell (WBC) Count 8.3 10x3/uL (3.5-10.5)
[2021-02-16] MEDS: EPOETIN ALFA-EPBX (ESRD) 2,000 UNIT/ML VIAL SC SCH (13:49)
[2021-02-16] MEDS: EPOETIN ALFA-EPBX (ESRD) 3,000 UNIT/ML VIAL SC SCH (13:49)
[2021-02-16] MEDS: Meropenem 500 MG in Sodium Chloride 0.9% 100 ML IVPB SCH (13:50)
[2021-02-16] MEDS: Apixaban 2.5 MG TAB PO SCH ×2 (14:09→21:05)
[2021-02-16] MEDS: Morphine 4 MG/ML VIAL SLOW IVP PRN (21:23)
[2021-02-17] MEDS: Meropenem 500 MG in Sodium Chloride 0.9% 100 ML IVPB SCH ×2 (00:38→15:52)
[2021-02-17 04:59] LABS: Vancomycin, Random 15.4 ug/mL (See Comment)
[2021-02-17] MEDS: Morphine ER 15 MG TAB PO SCH ×2 (05:17→16:06)
[2021-02-17] MEDS: Levothyroxine Sodium 125 MCG TAB PO SCH (05:20)
[2021-02-17] MEDS: Pantoprazole 40 MG GRANULES PACKET PO SCH (05:21)
[2021-02-17 09:16] LABS: #Basophils 0.1 10x3/uL (0.0-0.2); #Eosinphils 0.3 10x3/uL (0.0-0.5); #Monocytes 0.7 10x3/uL (0.0-1.1); #Neutrophils 5.8 10x3/uL (1.5-8.4); %Basophils 0.7 % (0.0-2.0); %Eosinophils 2.8 % (0.0-6.0); %Lymphocytes 23.6 % (18.0-47.0); %Monocytes 7.9 % (0.0-10.0); %Neutrophils 64.3 % (40.0-75.0); Hemoglobin 7.8 g/dL (12.0-15.5); Mean Corpuscular HGB CONC 28.9 g/dL (32.0-36.0); Mean Corpuscular Hemoglobin 27.2 pg (27.0-33.0); Mean Corpuscular Volume 94.1 fl (81.6-98.3); Mean Platelet Volume 9.5 fl (7.4-10.4); Platelet Count 385 10x3/uL (150-450); RBC Distribution Width 18.1 % (11.5-14.5); Red Blood Cell (RBC) Count 2.87 10x6/uL (3.90-5.03)
[2021-02-17 09:44] LABS: ALT (SGPT) Less than 6 U/L (8-55); AST (SGOT) 17 U/L (5-34); Albumin 2.5 g/dL (3.4-4.8); Alkaline Phosphatase 140 U/L (40-110); Anion Gap 15 mmol/L (10-20); BUN (Urea Nitrogen) 25 mg/dL (9.8-20.1); Bilirubin, Total 0.4 mg/dL (0.2-1.2); Calc. Creatinine Clearance 24 mL/min (70-130); Calcium 8.4 mg/dL (7.8-10.44); Carbon Dioxide 25 mmol/L (23-31); Chloride 98 mmol/L (98-107); Globulin 4.3 g/dL (2.4-3.5); Glucose 116 mg/dL (80-115); Potassium 4.5 mmol/L (3.5-5.1); Protein, Total 6.8 g/dL (5.8-8.1); Sodium 133 mmol/L (136-145)
[2021-02-17] MEDS: Atorvastatin Calcium 40 MG TAB PO SCH (10:04)
[2021-02-17] MEDS: Aspirin 81 mg Enteric Coated Tablet PO SCH (10:04)
[2021-02-17] MEDS: Apixaban 2.5 MG TAB PO SCH ×2 (10:04→20:48)
[2021-02-17] MEDS: Clopidogrel Bisulfate 75 MG TAB PO SCH (10:04)
[2021-02-17] MEDS: Gabapentin 300 MG CAP PO SCH ×2 (10:04→20:47)
[2021-02-17] MEDS: Ferrous Sulfate 325 MG TAB PO SCH (10:05)
[2021-02-17] MEDS: Amiodarone 200 MG TAB PO SCH ×2 (10:05→20:48)
[2021-02-17] MEDS: HumuLIN 70/30 (300 UNITS/3 ML VIAL) SC SCH ×2 (10:06→16:06)
[2021-02-17] MEDS: Morphine 4 MG/ML VIAL SLOW IVP PRN ×2 (12:45→17:47)
[2021-02-17] MEDS ORDERED: Vancomycin HCl 750 MG in Sodium Chloride 0.9% 250 ML 250 ML IVPB SCH (13:00)
[2021-02-17] MEDS: HYDROcodone/Acetaminophen 7.5/325 mg Tablet PO PRN (14:36)
[2021-02-18] MEDS: Meropenem 500 MG in Sodium Chloride 0.9% 100 ML IVPB SCH ×2 (00:16→12:59)
[2021-02-18] MEDS: Morphine ER 15 MG TAB PO SCH ×2 (04:39→17:17)
[2021-02-18] MEDS: Levothyroxine Sodium 125 MCG TAB PO SCH (06:00)
[2021-02-18] MEDS: Pantoprazole 40 MG GRANULES PACKET PO SCH (06:00)
[2021-02-18] MEDS ORDERED: EPOETIN ALFA-EPBX (ESRD) 3,000 UNIT/ML VIAL SC SCH ×2 (06:21→09:00)
[2021-02-18 06:31] LABS: #Basophils 0.1 10x3/uL (0.0-0.2); #Eosinphils 0.4 10x3/uL (0.0-0.5); #Monocytes 1.3 10x3/uL (0.0-1.1); #Neutrophils 7.5 10x3/uL (1.5-8.4); %Basophils 0.4 % (0.0-2.0); %Eosinophils 3.3 % (0.0-6.0); %Lymphocytes 21.7 % (18.0-47.0); %Monocytes 11.2 % (0.0-10.0); %Neutrophils 62.2 % (40.0-75.0); Hemoglobin 7.5 g/dL (12.0-15.5); Mean Corpuscular HGB CONC 29.4 g/dL (32.0-36.0); Mean Corpuscular Hemoglobin 27.3 pg (27.0-33.0); Mean Corpuscular Volume 92.7 fl (81.6-98.3); Mean Platelet Volume 9.6 fl (7.4-10.4); Platelet Count 362 10x3/uL (150-450); Red Blood Cell (RBC) Count 2.75 10x6/uL (3.90-5.03)
[2021-02-18 06:58] LABS: ALT (SGPT) 7 U/L (8-55); AST (SGOT) 25 U/L (5-34); Albumin 2.4 g/dL (3.4-4.8); Alkaline Phosphatase 122 U/L (40-110); Anion Gap 24 mmol/L (10-20); BUN (Urea Nitrogen) 35 mg/dL (9.8-20.1); Bilirubin, Total 0.4 mg/dL (0.2-1.2); Calc. Creatinine Clearance 18 mL/min (70-130); Calcium 9.6 mg/dL (7.8-10.44); Carbon Dioxide 16 mmol/L (23-31); Chloride 102 mmol/L (98-107); Potassium 5.5 mmol/L (3.5-5.1); Protein, Total 7.4 g/dL (5.8-8.1); Sodium 136 mmol/L (136-145)
[2021-02-18 07:03] LABS: Glucose 58 mg/dL (80-115)
[2021-02-18] MEDS: Apixaban 2.5 MG TAB PO SCH (08:26)
[2021-02-18] MEDS: Ferrous Sulfate 325 MG TAB PO SCH (08:26)
[2021-02-18] MEDS: Clopidogrel Bisulfate 75 MG TAB PO SCH (08:27)
[2021-02-18] MEDS: Amiodarone 200 MG TAB PO SCH (08:27)
[2021-02-18] MEDS: Gabapentin 300 MG CAP PO SCH (08:27)
[2021-02-18] MEDS: Atorvastatin Calcium 40 MG TAB PO SCH (08:28)
[2021-02-18] MEDS: Aspirin 81 mg Enteric Coated Tablet PO SCH (08:28)
[2021-02-18] MEDS: HumuLIN 70/30 (300 UNITS/3 ML VIAL) SC SCH ×2 (08:30→16:37)
[2021-02-18] MEDS: EPOETIN ALFA-EPBX (ESRD) 3,000 UNIT/ML VIAL SC SCH (08:47)
[2021-02-18] MEDS: EPOETIN ALFA-EPBX (ESRD) 2,000 UNIT/ML VIAL SC SCH (08:47)
[2021-02-18] MEDS ORDERED: Dextrose 50% Abboject 50 ML SYRINGE SLOW IVP SCH (09:25)
[2021-02-18] MEDS ORDERED: Insulin Regular 300 UNITS/3 ML VIAL IVP SCH (09:30)
[2021-02-18] MEDS: Lorazepam 0.5 MG TAB PO PRN (09:38)
[2021-02-19] MEDS: Amiodarone 200 MG TAB PO SCH ×3 (01:22→22:10)
[2021-02-19] MEDS: Gabapentin 300 MG CAP PO SCH ×3 (01:23→22:10)
[2021-02-19] MEDS: Apixaban 2.5 MG TAB PO SCH ×3 (01:23→22:10)
[2021-02-19] MEDS: Meropenem 500 MG in Sodium Chloride 0.9% 100 ML IVPB SCH ×2 (01:26→13:19)
[2021-02-19] MEDS: Lorazepam 0.5 MG TAB PO PRN (03:07)
[2021-02-19] MEDS: Morphine ER 15 MG TAB PO SCH ×2 (05:26→16:32)
[2021-02-19] MEDS: Pantoprazole 40 MG GRANULES PACKET PO SCH (05:56)
[2021-02-19] MEDS: Levothyroxine Sodium 125 MCG TAB PO SCH (05:56)
[2021-02-19 06:38] LABS: ALT (SGPT) 6 U/L (8-55); AST (SGOT) 18 U/L (5-34); Albumin 2.2 g/dL (3.4-4.8); Alkaline Phosphatase 105 U/L (40-110); Anion Gap 16 mmol/L (10-20); BUN (Urea Nitrogen) 16 mg/dL (9.8-20.1); Bilirubin, Total 0.4 mg/dL (0.2-1.2); Calc. Creatinine Clearance 34 mL/min (70-130); Calcium 9.2 mg/dL (7.8-10.44); Carbon Dioxide 25 mmol/L (23-31); Chloride 99 mmol/L (98-107); Globulin 4.5 g/dL (2.4-3.5); Glucose 110 mg/dL (80-115); Potassium 3.7 mmol/L (3.5-5.1); Protein, Total 6.7 g/dL (5.8-8.1); Sodium 136 mmol/L (136-145)
[2021-02-19] MEDS: HumuLIN 70/30 (300 UNITS/3 ML VIAL) SC SCH ×2 (07:08→16:34)
[2021-02-19 08:08] LABS: #Eosinphils 0.2 10x3/uL (0.0-0.5); #Neutrophils 6.9 10x3/uL (1.5-8.4); %Basophils 0.4 % (0.0-2.0); %Eosinophils 2.1 % (0.0-6.0); %Lymphocytes 13.6 % (18.0-47.0); %Monocytes 10.1 % (0.0-10.0); %Neutrophils 72.6 % (40.0-75.0); Hemoglobin 6.9 g/dL (12.0-15.5); Mean Corpuscular HGB CONC 29.1 g/dL (32.0-36.0); Mean Corpuscular Hemoglobin 26.8 pg (27.0-33.0); Mean Corpuscular Volume 92.2 fl (81.6-98.3); Mean Platelet Volume 9.4 fl (7.4-10.4); Platelet Count 336 10x3/uL (150-450); RBC Distribution Width 17.8 % (11.5-14.5); Red Blood Cell (RBC) Count 2.57 10x6/uL (3.90-5.03); White Blood Cell (WBC) Count 9.5 10x3/uL (3.5-10.5)
[2021-02-19] MEDS: Clopidogrel Bisulfate 75 MG TAB PO SCH (08:18)
[2021-02-19] MEDS: Atorvastatin Calcium 40 MG TAB PO SCH (08:18)
[2021-02-19] MEDS: Ferrous Sulfate 325 MG TAB PO SCH (08:18)
[2021-02-19] MEDS: Aspirin 81 mg Enteric Coated Tablet PO SCH (08:18)
[2021-02-19 10:07] LABS: Hemoglobin 6.9 g/dL (12.0-15.5)
[2021-02-19] MEDS: Morphine 4 MG/ML VIAL SLOW IVP PRN (22:30)
[2021-02-20] MEDS: Meropenem 500 MG in Sodium Chloride 0.9% 100 ML IVPB SCH ×2 (04:19→17:24)
[2021-02-20] MEDS: Morphine ER 15 MG TAB PO SCH ×2 (04:30→17:11)
[2021-02-20 05:56] LABS: #Basophils 0.1 10x3/uL (0.0-0.2); #Eosinphils 0.3 10x3/uL (0.0-0.5); #Monocytes 1.1 10x3/uL (0.0-1.1); #Neutrophils 4.6 10x3/uL (1.5-8.4); %Basophils 0.8 % (0.0-2.0); %Eosinophils 3.6 % (0.0-6.0); %Lymphocytes 23.7 % (18.0-47.0); %Monocytes 13.3 % (0.0-10.0); %Neutrophils 57.6 % (40.0-75.0); Hemoglobin 7.6 g/dL (12.0-15.5); Mean Corpuscular HGB CONC 30.5 g/dL (32.0-36.0); Mean Corpuscular Hemoglobin 27.7 pg (27.0-33.0); Mean Corpuscular Volume 90.9 fl (81.6-98.3); Mean Platelet Volume 9.4 fl (7.4-10.4); Platelet Count 302 10x3/uL (150-450); RBC Distribution Width 17.6 % (11.5-14.5); Red Blood Cell (RBC) Count 2.74 10x6/uL (3.90-5.03)
[2021-02-20 06:13] LABS: Anion Gap 17 mmol/L (10-20); BUN (Urea Nitrogen) 26 mg/dL (9.8-20.1); Calc. Creatinine Clearance 25 mL/min (70-130); Calcium 8.1 mg/dL (7.8-10.44); Carbon Dioxide 24 mmol/L (23-31); Chloride 100 mmol/L (98-107); Glucose 81 mg/dL (80-115); Potassium 4.3 mmol/L (3.5-5.1); Sodium 137 mmol/L (136-145)
[2021-02-20 06:14] LABS: Vancomycin, Random 10.6 ug/mL (See Comment)
[2021-02-20] MEDS: Morphine 4 MG/ML VIAL SLOW IVP PRN ×3 (06:50→20:08)
[2021-02-20] MEDS: Levothyroxine Sodium 125 MCG TAB PO SCH (06:53)
[2021-02-20] MEDS: Pantoprazole 40 MG GRANULES PACKET PO SCH (06:53)
[2021-02-20] MEDS: Apixaban 2.5 MG TAB PO SCH ×2 (09:38→20:13)
[2021-02-20] MEDS: Amiodarone 200 MG TAB PO SCH ×2 (09:38→20:13)
[2021-02-20] MEDS: Ferrous Sulfate 325 MG TAB PO SCH (09:38)
[2021-02-20] MEDS: Atorvastatin Calcium 40 MG TAB PO SCH (09:39)
[2021-02-20] MEDS: Clopidogrel Bisulfate 75 MG TAB PO SCH (09:39)
[2021-02-20] MEDS: Aspirin 81 mg Enteric Coated Tablet PO SCH (09:39)
[2021-02-20] MEDS: Gabapentin 300 MG CAP PO SCH ×2 (09:39→20:13)
[2021-02-20] MEDS: HumuLIN 70/30 (300 UNITS/3 ML VIAL) SC SCH ×2 (09:40→17:13)
[2021-02-20] MEDS ORDERED: Vancomycin HCl 1 GM in Sodium Chloride 0.9% 250 ML 250 ML IVPB SCH ×2 (10:15→15:00)
[2021-02-20] MEDS: Acetaminophen 325 MG TAB PO PRN (20:13)
[2021-02-21] MEDS: Meropenem 500 MG in Sodium Chloride 0.9% 100 ML IVPB SCH ×2 (04:23→18:37)
[2021-02-21] MEDS: Morphine ER 15 MG TAB PO SCH ×2 (04:24→18:36)
[2021-02-21] MEDS: Levothyroxine Sodium 125 MCG TAB PO SCH (05:00)
[2021-02-21] MEDS: Pantoprazole 40 MG GRANULES PACKET PO SCH (05:00)
[2021-02-21] MEDS: Morphine 4 MG/ML VIAL SLOW IVP PRN ×5 (06:06→23:49)
[2021-02-21 06:07] LABS: #Basophils 0.1 10x3/uL (0.0-0.2); #Eosinphils 0.3 10x3/uL (0.0-0.5); #Monocytes 0.9 10x3/uL (0.0-1.1); #Neutrophils 4.2 10x3/uL (1.5-8.4); %Basophils 0.8 % (0.0-2.0); %Eosinophils 4.1 % (0.0-6.0); %Lymphocytes 27.3 % (18.0-47.0); %Monocytes 11.6 % (0.0-10.0); %Neutrophils 55.4 % (40.0-75.0); Hemoglobin 7.6 g/dL (12.0-15.5); Mean Corpuscular Hemoglobin 27.4 pg (27.0-33.0); Mean Corpuscular Volume 94.6 fl (81.6-98.3); Mean Platelet Volume 9.4 fl (7.4-10.4); Platelet Count 331 10x3/uL (150-450); RBC Distribution Width 17.4 % (11.5-14.5); Red Blood Cell (RBC) Count 2.77 10x6/uL (3.90-5.03); White Blood Cell (WBC) Count 7.6 10x3/uL (3.5-10.5)
[2021-02-21 06:15] LABS: Anion Gap 16 mmol/L (10-20); BUN (Urea Nitrogen) 14 mg/dL (9.8-20.1); Calc. Creatinine Clearance 35 mL/min (70-130); Carbon Dioxide 24 mmol/L (23-31); Chloride 100 mmol/L (98-107); Glucose 116 mg/dL (80-115); Potassium 4.2 mmol/L (3.5-5.1); Sodium 136 mmol/L (136-145)
[2021-02-21] MEDS: HumuLIN 70/30 (300 UNITS/3 ML VIAL) SC SCH ×2 (09:18→18:38)
[2021-02-21] MEDS: Ferrous Sulfate 325 MG TAB PO SCH (09:23)
[2021-02-21] MEDS: Gabapentin 300 MG CAP PO SCH ×2 (09:24→22:12)
[2021-02-21] MEDS: Atorvastatin Calcium 40 MG TAB PO SCH (09:24)
[2021-02-21] MEDS: Aspirin 81 mg Enteric Coated Tablet PO SCH (09:24)
[2021-02-21] MEDS: Amiodarone 200 MG TAB PO SCH ×2 (09:25→22:11)
[2021-02-21] MEDS: Clopidogrel Bisulfate 75 MG TAB PO SCH (09:25)
[2021-02-21] MEDS: Apixaban 2.5 MG TAB PO SCH ×2 (09:26→22:13)
[2021-02-21] MEDS: EPOETIN ALFA-EPBX (ESRD) 3,000 UNIT/ML VIAL SC SCH (09:29)
[2021-02-21] MEDS: EPOETIN ALFA-EPBX (ESRD) 2,000 UNIT/ML VIAL SC SCH (09:30)
[2021-02-22] MEDS: Morphine ER 15 MG TAB PO SCH ×2 (04:40→15:37)
[2021-02-22] MEDS: Meropenem 500 MG in Sodium Chloride 0.9% 100 ML IVPB SCH ×2 (04:40→15:52)
[2021-02-22] MEDS: Pantoprazole 40 MG GRANULES PACKET PO SCH (06:28)
[2021-02-22] MEDS: Levothyroxine Sodium 125 MCG TAB PO SCH (06:28)
[2021-02-22 08:26] LABS: #Basophils 0.1 10x3/uL (0.0-0.2); #Eosinphils 0.3 10x3/uL (0.0-0.5); #Monocytes 0.8 10x3/uL (0.0-1.1); #Neutrophils 5.1 10x3/uL (1.5-8.4); %Basophils 0.8 % (0.0-2.0); %Eosinophils 3.5 % (0.0-6.0); %Lymphocytes 28.1 % (18.0-47.0); %Monocytes 8.9 % (0.0-10.0); %Neutrophils 57.9 % (40.0-75.0); Hemoglobin 8.1 g/dL (12.0-15.5); Mean Corpuscular HGB CONC 29.8 g/dL (32.0-36.0); Mean Corpuscular Hemoglobin 27.3 pg (27.0-33.0); Mean Corpuscular Volume 91.6 fl (81.6-98.3); Mean Platelet Volume 9.5 fl (7.4-10.4); Platelet Count 348 10x3/uL (150-450); RBC Distribution Width 17.2 % (11.5-14.5); Red Blood Cell (RBC) Count 2.97 10x6/uL (3.90-5.03); White Blood Cell (WBC) Count 8.9 10x3/uL (3.5-10.5)
[2021-02-22 08:40] LABS: Vancomycin, Random 15.9 ug/mL (See Comment)
[2021-02-22 08:50] LABS: Anion Gap 17 mmol/L (10-20); BUN (Urea Nitrogen) 23 mg/dL (9.8-20.1); Calc. Creatinine Clearance 23 mL/min (70-130); Calcium 8.5 mg/dL (7.8-10.44); Carbon Dioxide 26 mmol/L (23-31); Chloride 97 mmol/L (98-107); Glucose 110 mg/dL (80-115); Potassium 4.6 mmol/L (3.5-5.1); Sodium 135 mmol/L (136-145)
[2021-02-22] MEDS: Morphine 4 MG/ML VIAL SLOW IVP PRN ×3 (09:50→21:58)
[2021-02-22] MEDS: Ferrous Sulfate 325 MG TAB PO SCH (09:51)
[2021-02-22] MEDS: HumuLIN 70/30 (300 UNITS/3 ML VIAL) SC SCH ×2 (09:51→17:58)
[2021-02-22] MEDS: Gabapentin 300 MG CAP PO SCH ×2 (09:52→21:54)
[2021-02-22] MEDS: Atorvastatin Calcium 40 MG TAB PO SCH (09:52)
[2021-02-22] MEDS: Apixaban 2.5 MG TAB PO SCH ×2 (09:52→21:54)
[2021-02-22] MEDS: Clopidogrel Bisulfate 75 MG TAB PO SCH (09:52)
[2021-02-22] MEDS: Aspirin 81 mg Enteric Coated Tablet PO SCH (09:52)
[2021-02-22] MEDS: Amiodarone 200 MG TAB PO SCH ×2 (09:52→21:54)
[2021-02-22] MEDS ORDERED: Vancomycin HCl 750 MG in Sodium Chloride 0.9% 250 ML 250 ML IVPB SCH (11:00)
[2021-02-22] MEDS: Lorazepam 0.5 MG TAB PO PRN (13:27)
[2021-02-23] MEDS: Acetaminophen 325 MG TAB PO PRN (00:31)
[2021-02-23] MEDS: Lorazepam 0.5 MG TAB PO PRN ×2 (00:31→20:18)
[2021-02-23] MEDS: Meropenem 500 MG in Sodium Chloride 0.9% 100 ML IVPB SCH ×2 (04:14→17:03)
[2021-02-23] MEDS: Morphine ER 15 MG TAB PO SCH (04:15)
[2021-02-23 05:02] LABS: #Basophils 0.1 10x3/uL (0.0-0.2); #Eosinphils 0.4 10x3/uL (0.0-0.5); #Monocytes 0.8 10x3/uL (0.0-1.1); #Neutrophils 5.7 10x3/uL (1.5-8.4); %Basophils 0.7 % (0.0-2.0); %Eosinophils 3.8 % (0.0-6.0); %Lymphocytes 27.3 % (18.0-47.0); %Monocytes 8.6 % (0.0-10.0); Hemoglobin 7.9 g/dL (12.0-15.5); Mean Corpuscular HGB CONC 30.3 g/dL (32.0-36.0); Mean Corpuscular Hemoglobin 27.8 pg (27.0-33.0); Mean Corpuscular Volume 91.9 fl (81.6-98.3); Mean Platelet Volume 9.3 fl (7.4-10.4); Platelet Count 353 10x3/uL (150-450); RBC Distribution Width 16.8 % (11.5-14.5); Red Blood Cell (RBC) Count 2.84 10x6/uL (3.90-5.03); White Blood Cell (WBC) Count 9.6 10x3/uL (3.5-10.5)
[2021-02-23 05:24] LABS: Anion Gap 17 mmol/L (10-20); BUN (Urea Nitrogen) 13 mg/dL (9.8-20.1); Calc. Creatinine Clearance 36 mL/min (70-130); Calcium 8.3 mg/dL (7.8-10.44); Carbon Dioxide 24 mmol/L (23-31); Chloride 101 mmol/L (98-107); Glucose 99 mg/dL (80-115); Potassium 4.5 mmol/L (3.5-5.1); Sodium 137 mmol/L (136-145)
[2021-02-23] MEDS: Levothyroxine Sodium 125 MCG TAB PO SCH (06:22)
[2021-02-23] MEDS: Apixaban 2.5 MG TAB PO SCH ×2 (09:31→20:18)
[2021-02-23] MEDS: Ferrous Sulfate 325 MG TAB PO SCH (09:31)
[2021-02-23] MEDS: Clopidogrel Bisulfate 75 MG TAB PO SCH (09:31)
[2021-02-23] MEDS: Gabapentin 300 MG CAP PO SCH ×2 (09:31→20:19)
[2021-02-23] MEDS: Amiodarone 200 MG TAB PO SCH ×2 (09:31→20:18)
[2021-02-23] MEDS: Aspirin 81 mg Enteric Coated Tablet PO SCH (09:31)
[2021-02-23] MEDS: EPOETIN ALFA-EPBX (ESRD) 2,000 UNIT/ML VIAL SC SCH (09:32)
[2021-02-23] MEDS: Atorvastatin Calcium 40 MG TAB PO SCH (09:32)
[2021-02-23] MEDS: EPOETIN ALFA-EPBX (ESRD) 3,000 UNIT/ML VIAL SC SCH (09:32)
[2021-02-23] MEDS: HumuLIN 70/30 (300 UNITS/3 ML VIAL) SC SCH ×2 (09:32→18:13)
[2021-02-23] MEDS: Morphine 4 MG/ML VIAL SLOW IVP PRN ×2 (10:29→20:18)
[2021-02-24] MEDS: Meropenem 500 MG in Sodium Chloride 0.9% 100 ML IVPB SCH ×2 (05:25→21:28)
[2021-02-24] MEDS: Levothyroxine Sodium 125 MCG TAB PO SCH (05:25)
[2021-02-24 06:52] LABS: #Basophils 0.1 10x3/uL (0.0-0.2); #Eosinphils 0.5 10x3/uL (0.0-0.5); #Monocytes 0.8 10x3/uL (0.0-1.1); #Neutrophils 6.5 10x3/uL (1.5-8.4); %Basophils 0.7 % (0.0-2.0); %Eosinophils 4.6 % (0.0-6.0); %Lymphocytes 23.6 % (18.0-47.0); %Monocytes 7.3 % (0.0-10.0); %Neutrophils 63.1 % (40.0-75.0); Hemoglobin 7.9 g/dL (12.0-15.5); Mean Corpuscular HGB CONC 29.8 g/dL (32.0-36.0); Mean Corpuscular Hemoglobin 27.5 pg (27.0-33.0); Mean Corpuscular Volume 92.3 fl (81.6-98.3); Mean Platelet Volume 9.3 fl (7.4-10.4); Platelet Count 344 10x3/uL (150-450); RBC Distribution Width 16.9 % (11.5-14.5); Red Blood Cell (RBC) Count 2.87 10x6/uL (3.90-5.03); White Blood Cell (WBC) Count 10.3 10x3/uL (3.5-10.5)
[2021-02-24 06:58] LABS: Vancomycin, Random 15.5 ug/mL (See Comment)
[2021-02-24 07:16] LABS: Anion Gap 18 mmol/L (10-20); BUN (Urea Nitrogen) 25 mg/dL (9.8-20.1); Calc. Creatinine Clearance 24 mL/min (70-130); Calcium 8.5 mg/dL (7.8-10.44); Carbon Dioxide 25 mmol/L (23-31); Chloride 100 mmol/L (98-107); Glucose 123 mg/dL (80-115); Potassium 4.6 mmol/L (3.5-5.1); Sodium 138 mmol/L (136-145)
[2021-02-24] MEDS: Gabapentin 300 MG CAP PO SCH ×2 (09:17→21:27)
[2021-02-24] MEDS: Amiodarone 200 MG TAB PO SCH ×2 (09:18→21:27)
[2021-02-24] MEDS: Clopidogrel Bisulfate 75 MG TAB PO SCH (09:18)
[2021-02-24] MEDS: Ferrous Sulfate 325 MG TAB PO SCH (09:18)
[2021-02-24] MEDS: Apixaban 2.5 MG TAB PO SCH ×2 (09:19→21:27)
[2021-02-24] MEDS: Atorvastatin Calcium 40 MG TAB PO SCH (09:19)
[2021-02-24] MEDS: Aspirin 81 mg Enteric Coated Tablet PO SCH (09:19)
[2021-02-24] MEDS: HumuLIN 70/30 (300 UNITS/3 ML VIAL) SC SCH ×3 (09:20→18:06)
[2021-02-24] MEDS: Morphine 4 MG/ML VIAL SLOW IVP PRN ×2 (09:36→21:28)
[2021-02-24] MEDS ORDERED: Vancomycin HCl 750 MG in Sodium Chloride 0.9% 250 ML 250 ML IVPB SCH (14:00)
[2021-02-24] MEDS: Morphine IR Tab 15 MG TAB PO PRN (14:20)
[2021-02-24] MEDS: Lorazepam 0.5 MG TAB PO PRN (21:27)
[2021-02-25] MEDS: Morphine IR Tab 15 MG TAB PO PRN ×3 (06:02→16:02)
[2021-02-25] MEDS: Levothyroxine Sodium 125 MCG TAB PO SCH (06:02)
[2021-02-25] MEDS: Meropenem 500 MG in Sodium Chloride 0.9% 100 ML IVPB SCH ×2 (09:45→21:15)
[2021-02-25] MEDS: HumuLIN 70/30 (300 UNITS/3 ML VIAL) SC SCH ×2 (09:45→16:36)
[2021-02-25] MEDS: Morphine 4 MG/ML VIAL SLOW IVP PRN ×2 (09:46→21:17)
[2021-02-25] MEDS: Clopidogrel Bisulfate 75 MG TAB PO SCH (09:47)
[2021-02-25] MEDS: Aspirin 81 mg Enteric Coated Tablet PO SCH (09:47)
[2021-02-25] MEDS: Amiodarone 200 MG TAB PO SCH ×2 (09:47→21:16)
[2021-02-25] MEDS: Gabapentin 300 MG CAP PO SCH ×2 (09:47→21:16)
[2021-02-25] MEDS: Apixaban 2.5 MG TAB PO SCH ×2 (09:48→21:16)
[2021-02-25] MEDS: Atorvastatin Calcium 40 MG TAB PO SCH (09:48)
[2021-02-25] MEDS: Ferrous Sulfate 325 MG TAB PO SCH (09:48)
[2021-02-25] MEDS: EPOETIN ALFA-EPBX (ESRD) 3,000 UNIT/ML VIAL SC SCH (15:55)
[2021-02-25] MEDS: EPOETIN ALFA-EPBX (ESRD) 2,000 UNIT/ML VIAL SC SCH (15:55)
[2021-02-26] MEDS: Levothyroxine Sodium 125 MCG TAB PO SCH (05:48)
[2021-02-26] MEDS: Morphine IR Tab 15 MG TAB PO PRN ×4 (06:42→20:54)
[2021-02-26] MEDS: HumuLIN 70/30 (300 UNITS/3 ML VIAL) SC SCH ×2 (10:09→17:12)
[2021-02-26] MEDS: Morphine 4 MG/ML VIAL SLOW IVP PRN (10:09)
[2021-02-26] MEDS: Apixaban 2.5 MG TAB PO SCH ×2 (10:10→20:54)
[2021-02-26] MEDS: Meropenem 500 MG in Sodium Chloride 0.9% 100 ML IVPB SCH ×2 (10:10→20:50)
[2021-02-26] MEDS: Clopidogrel Bisulfate 75 MG TAB PO SCH (10:10)
[2021-02-26] MEDS: Ferrous Sulfate 325 MG TAB PO SCH (10:10)
[2021-02-26] MEDS: Amiodarone 200 MG TAB PO SCH ×2 (10:11→20:54)
[2021-02-26] MEDS: Atorvastatin Calcium 40 MG TAB PO SCH (10:11)
[2021-02-26] MEDS: Aspirin 81 mg Enteric Coated Tablet PO SCH (10:11)
[2021-02-26] MEDS: Gabapentin 300 MG CAP PO SCH ×2 (10:11→20:53)
[2021-02-26] MEDS ORDERED: Meropenem 500 MG VIAL ONE (20:12)
[2021-02-27] MEDS: Morphine IR Tab 15 MG TAB PO PRN (06:23)
[2021-02-27] MEDS: Levothyroxine Sodium 125 MCG TAB PO SCH (06:23)
[2021-02-27 07:04] LABS: Vancomycin, Random 14.8 ug/mL (See Comment)
[2021-02-27] MEDS: HumuLIN 70/30 (300 UNITS/3 ML VIAL) SC SCH ×2 (09:21→17:44)
[2021-02-27] MEDS: Ferrous Sulfate 325 MG TAB PO SCH (09:30)
[2021-02-27] MEDS: Clopidogrel Bisulfate 75 MG TAB PO SCH (09:31)
[2021-02-27] MEDS: Atorvastatin Calcium 40 MG TAB PO SCH (09:31)
[2021-02-27] MEDS: Aspirin 81 mg Enteric Coated Tablet PO SCH (09:31)
[2021-02-27] MEDS: Gabapentin 300 MG CAP PO SCH ×2 (09:32→21:33)
[2021-02-27] MEDS: Amiodarone 200 MG TAB PO SCH ×2 (09:32→21:34)
[2021-02-27] MEDS: Apixaban 2.5 MG TAB PO SCH ×2 (09:32→21:34)
[2021-02-27] MEDS: Meropenem 500 MG in Sodium Chloride 0.9% 100 ML IVPB SCH ×2 (09:35→21:35)
[2021-02-27 12:36] LABS: Hep B Surf Ag Non-Reactive S/CO (NonReactive)
[2021-02-27 13:49] LABS: HBSAg Index 0.22 S/CO (0-0.99)
[2021-02-27] MEDS ORDERED: Vancomycin HCl 1 GM in Sodium Chloride 0.9% 250 ML 250 ML IVPB SCH (15:00)
[2021-02-28 00:47] LABS: HBSAB Concentration Less than 8.00 mIU/mL; Hep B Core Total Ab Non-Reactive (NonReactive); Hep B Core Total Index 0.14 S/CO (0-0.79); Hep B Surf AB Non-Reactive (NonReactive); Hep C IgG Ab Non-Reactive (NonReactive); Hep C Index 0.08 S/CO (0-0.79)
[2021-02-28] MEDS: Levothyroxine Sodium 125 MCG TAB PO SCH (05:10)
[2021-02-28] MEDS: Lorazepam 0.5 MG TAB PO PRN (05:19)
[2021-02-28] MEDS: Gabapentin 300 MG CAP PO SCH ×2 (09:22→20:23)
[2021-02-28] MEDS: Atorvastatin Calcium 40 MG TAB PO SCH (09:22)
[2021-02-28] MEDS: Ferrous Sulfate 325 MG TAB PO SCH (09:22)
[2021-02-28] MEDS: Aspirin 81 mg Enteric Coated Tablet PO SCH (09:22)
[2021-02-28] MEDS: Amiodarone 200 MG TAB PO SCH ×2 (09:25→20:23)
[2021-02-28] MEDS: Apixaban 2.5 MG TAB PO SCH ×2 (09:25→20:24)
[2021-02-28] MEDS: HumuLIN 70/30 (300 UNITS/3 ML VIAL) SC SCH ×2 (09:25→17:16)
[2021-02-28] MEDS: Clopidogrel Bisulfate 75 MG TAB PO SCH (09:25)
[2021-02-28] MEDS: Meropenem 500 MG in Sodium Chloride 0.9% 100 ML IVPB SCH (09:26)
[2021-02-28] MEDS: EPOETIN ALFA-EPBX (ESRD) 4,000 UNIT/ML VIAL SC SCH (09:26)
[2021-02-28] MEDS: Morphine IR Tab 15 MG TAB PO PRN ×2 (10:57→16:03)
[2021-02-28] MEDS ORDERED: Lidocaine 1% w/Epinephrine 1:100K 20 ML VIAL FS SCH (12:30)
[2021-02-28 15:52] LABS: INR-International Normal Ratio 1.2; PTT 34.7 sec (22.0-33.0); Prothrombin Time 13.5 sec (9.5-12.1)
[2021-03-01] MEDS: Levothyroxine Sodium 125 MCG TAB PO SCH (05:15)
[2021-03-01] MEDS: Acetaminophen 325 MG TAB PO PRN (06:02)
[2021-03-01 06:36] LABS: Vancomycin, Random 21.1 ug/mL (See Comment)
[2021-03-01] MEDS: Morphine IR Tab 15 MG TAB PO PRN ×3 (11:50→21:21)
[2021-03-01] MEDS: Amiodarone 200 MG TAB PO SCH ×2 (11:50→21:21)
[2021-03-01] MEDS: Gabapentin 300 MG CAP PO SCH ×2 (11:51→21:20)
[2021-03-01] MEDS: Atorvastatin Calcium 40 MG TAB PO SCH (11:51)
[2021-03-01] MEDS: Aspirin 81 mg Enteric Coated Tablet PO SCH (11:51)
[2021-03-01] MEDS: Ferrous Sulfate 325 MG TAB PO SCH (11:51)
[2021-03-01] MEDS: Apixaban 2.5 MG TAB PO SCH ×2 (11:51→21:21)
[2021-03-01] MEDS: HumuLIN 70/30 (300 UNITS/3 ML VIAL) SC SCH ×2 (11:52→16:47)
[2021-03-01] MEDS: Clopidogrel Bisulfate 75 MG TAB PO SCH (11:52)
[2021-03-01] MEDS: Morphine 4 MG/ML VIAL SLOW IVP PRN ×2 (12:01→16:52)
[2021-03-01] MEDS: Lorazepam 0.5 MG TAB PO PRN (23:45)
[2021-03-02] MEDS: Levothyroxine Sodium 125 MCG TAB PO SCH (05:34)
[2021-03-02] MEDS: Morphine IR Tab 15 MG TAB PO PRN (09:58)
[2021-03-02] MEDS: Atorvastatin Calcium 40 MG TAB PO SCH ×2 (11:27→11:29)
[2021-03-02] MEDS: Amiodarone 200 MG TAB PO SCH (11:28)
[2021-03-02] MEDS: Gabapentin 300 MG CAP PO SCH (11:28)
[2021-03-02] MEDS: Clopidogrel Bisulfate 75 MG TAB PO SCH (11:28)
[2021-03-02] MEDS: Ferrous Sulfate 325 MG TAB PO SCH (11:28)
[2021-03-02] MEDS: Aspirin 81 mg Enteric Coated Tablet PO SCH (11:29)
[2021-03-02] MEDS: Apixaban 2.5 MG TAB PO SCH (11:29)
[2021-03-02] MEDS: HumuLIN 70/30 (300 UNITS/3 ML VIAL) SC SCH ×2 (11:29→17:12)
[2021-03-02] MEDS: EPOETIN ALFA-EPBX (ESRD) 4,000 UNIT/ML VIAL SC SCH (17:12)
[2021-03-02 17:32] VITALS: BP 108/51; TEMP 97.5
== END 2021-03-02 16:30 | DRG 564 ==
LOC: CSHTELE 16:15
PROVIDERS: ADMIT Family Medicine; ATTEND Internal Medicine
PROC: 30233N1 Transfusion of Nonautologous Red Blood Cells into Peripheral Vein, Percutaneous Approach (ICD-10-PCS; principal; 2021-02-09)
PROC: 0HBHXZZ Excision of Right Upper Leg Skin, External Approach (ICD-10-PCS; 2021-02-09)
PROC: 5A1D70Z Performance of Urinary Filtration, Intermittent, Less than 6 Hours Per Day (ICD-10-PCS; 2021-02-09)
DX: T87.43 Infection of amputation stump, right lower extremity (principal); L89.893 Pressure ulcer of other site, stage 3; L89.154 Pressure ulcer of sacral region, stage 4; N18.6 End stage renal disease; I12.0 Hypertensive chronic kidney disease with stage 5 chronic kidney disease or end stage renal disease; E46 Unspecified protein-calorie malnutrition; L02.415 Cutaneous abscess of right lower limb; Z68.41 Body mass index [BMI] 40.0-44.9, adult; K92.1 Melena; E11.22 Type 2 diabetes mellitus with diabetic chronic kidney disease; E78.5 Hyperlipidemia, unspecified; Z89.611 Acquired absence of right leg above knee; Z89.412 Acquired absence of left great toe; I25.10 Atherosclerotic heart disease of native coronary artery without angina pectoris; I48.91 Unspecified atrial fibrillation; E03.9 Hypothyroidism, unspecified; F41.9 Anxiety disorder, unspecified; F40.240 Claustrophobia; Z99.2 Dependence on renal dialysis; Z79.4 Long term (current) use of insulin; Z79.899 Other long term (current) drug therapy; I51.9 Heart disease, unspecified; D63.1 Anemia in chronic kidney disease; E11.51 Type 2 diabetes mellitus with diabetic peripheral angiopathy without gangrene; Z66 Do not resuscitate; E66.9 Obesity, unspecified; I95.9 Hypotension, unspecified; E87.5 Hyperkalemia; E11.649 Type 2 diabetes mellitus with hypoglycemia without coma; M79.89 Other specified soft tissue disorders; L89.620 Pressure ulcer of left heel, unstageable
CPT/HCPCS: 36415; 36416; 36430; 71045; 80048; 80053; 80069; 80202; 82274; 82728; 83540; 83550; 83735; 85007; 85025; 85027; 85610; 85730; 86140; 86704; 86706; 86803; 86850; 86900; 86901; 87040; 87340; 90935; 93005; 93010; 93923; 94760; G0257; J1644; J1815; J1885; J2185; J2270; J2543; J3370; J3490; J7050; P9016; Q5105

== ENCOUNTER 2021-04-20 08:42 | Outpatient (CLI) | payer MEDICARE, MEDICAID | END 2021-04-20 08:43 | disposition home or self-care (01) | LOC: CSHWCC 08:42 | PROVIDERS: ATTEND Nurse Practitioner Family | DX: L89.894 Pressure ulcer of other site, stage 4 (principal); L89.892 Pressure ulcer of other site, stage 2; L89.620 Pressure ulcer of left heel, unstageable; L89.522 Pressure ulcer of left ankle, stage 2; L89.220 Pressure ulcer of left hip, unstageable; L89.154 Pressure ulcer of sacral region, stage 4; E11.621 Type 2 diabetes mellitus with foot ulcer; E11.622 Type 2 diabetes mellitus with other skin ulcer; L97.522 Non-pressure chronic ulcer of other part of left foot with fat layer exposed; L97.812 Non-pressure chronic ulcer of other part of right lower leg with fat layer exposed; I13.2 Hypertensive heart and chronic kidney disease with heart failure and with stage 5 chronic kidney disease, or end stage renal disease; E11.22 Type 2 diabetes mellitus with diabetic chronic kidney disease; I50.32 Chronic diastolic (congestive) heart failure; N18.6 End stage renal disease; D63.1 Anemia in chronic kidney disease; I73.9 Peripheral vascular disease, unspecified; I25.10 Atherosclerotic heart disease of native coronary artery without angina pectoris; G40.909 Epilepsy, unspecified, not intractable, without status epilepticus; E03.9 Hypothyroidism, unspecified; E46 Unspecified protein-calorie malnutrition; E78.5 Hyperlipidemia, unspecified; F41.9 Anxiety disorder, unspecified; G93.40 Encephalopathy, unspecified; M62.81 Muscle weakness (generalized); E66.9 Obesity, unspecified; Z74.01 Bed confinement status; Z89.412 Acquired absence of left great toe; Z89.611 Acquired absence of right leg above knee; Z99.2 Dependence on renal dialysis | CPT/HCPCS: 11042; 11045; 87070; 87205; 97139; G0463; 99204 ==

== ENCOUNTER 2021-04-28 18:49 | Emergency (ER) | payer MEDICARE, MEDICAID ==
[2021-04-28 19:52] LABS: #Eosinphils 0.3 10x3/uL (0.0-0.5); #Monocytes 0.6 10x3/uL (0.0-1.1); #Neutrophils 5.5 10x3/uL (1.5-8.4); %Basophils 0.5 % (0.0-2.0); %Eosinophils 3.3 % (0.0-6.0); %Lymphocytes 23.5 % (18.0-47.0); %Monocytes 6.6 % (0.0-10.0); %Neutrophils 65.7 % (40.0-75.0); Hemoglobin 7.3 g/dL (12.0-15.5); Mean Corpuscular HGB CONC 27.3 g/dL (32.0-36.0); Mean Platelet Volume 9.4 fl (7.4-10.4); Platelet Count 402 10x3/uL (150-450); RBC Distribution Width 18.1 % (11.5-14.5); Red Blood Cell (RBC) Count 2.81 10x6/uL (3.90-5.03); White Blood Cell (WBC) Count 8.4 10x3/uL (3.5-10.5)
[2021-04-28 20:02] LABS: INR-International Normal Ratio 1.2; PTT 36.8 sec (22.0-33.0)
[2021-04-28 20:05] LABS: ALT (SGPT) 13 U/L (8-55); AST (SGOT) 33 U/L (5-34); Alkaline Phosphatase 167 U/L (40-110); Anion Gap 10 mmol/L (10-20); BUN (Urea Nitrogen) 11 mg/dL (9.8-20.1); Bilirubin, Total 0.6 mg/dL (0.2-1.2); Calc. Creatinine Clearance 0 mL/min (70-130); Calcium 7.9 mg/dL (7.8-10.44); Carbon Dioxide 33 mmol/L (23-31); Chloride 97 mmol/L (98-107); Glucose 123 mg/dL (80-115); Potassium 3.1 mmol/L (3.5-5.1); Sodium 137 mmol/L (136-145)
[2021-04-29] MEDS ORDERED: HYDROcodone/Acetaminophen 10/325 mg Tablet ONE (00:14)
== END 2021-04-29 02:39 | disposition short-term general hospital (02) ==
LOC: CSHERS 18:49
DX: T82.838A Hemorrhage due to vascular prosthetic devices, implants and grafts, initial encounter (principal); D62 Acute posthemorrhagic anemia; E03.9 Hypothyroidism, unspecified; I12.0 Hypertensive chronic kidney disease with stage 5 chronic kidney disease or end stage renal disease; E11.22 Type 2 diabetes mellitus with diabetic chronic kidney disease; N18.6 End stage renal disease; Z99.2 Dependence on renal dialysis; Z79.4 Long term (current) use of insulin; Z85.528 Personal history of other malignant neoplasm of kidney
CPT/HCPCS: 36430; 80053; 85025; 85610; 85730; 86850; 86900; 86901; 86920; 99285; P9016

== ENCOUNTER 2021-06-22 10:12 | Outpatient (CLI) | payer MEDICARE, MEDICAID | END 2021-06-22 10:13 | disposition home or self-care (01) | LOC: CSHWCC 10:12 | PROVIDERS: ATTEND Nurse Practitioner Family | DX: L89.220 Pressure ulcer of left hip, unstageable (principal); L89.620 Pressure ulcer of left heel, unstageable; L89.212 Pressure ulcer of right hip, stage 2; L89.892 Pressure ulcer of other site, stage 2 | CPT/HCPCS: 11043; 11046; 97139; G0463; 99213 ==